=== PATIENT | male | born 1990 | race Hispanic/Latino ===

== ENCOUNTER 2017-02-23 07:48 | Emergency (ER) | payer SELFPAY ==
--- NOTE | 2017-02-23 09:50 | RAD ---
TWO VIEW CHEST: INDICATION: Cough. COMPARISON: No prior comparison. FINDINGS: There is no evidence of consolidation, effusion, or pneumothorax. The cardiac silhouette is normal in size. IMPRESSION: No focal consolidation. POS: [id number]
== END 2017-02-23 09:40 | disposition home or self-care (01) ==
LOC: ERS 07:48
DX: J11.1 Influenza due to unidentified influenza virus with other respiratory manifestations (principal)
CPT/HCPCS: 71020; 93005